=== PATIENT | female | born 1955 | race Caucasian/White ===

== ENCOUNTER 2018-04-01 07:44 | Day surgery (SDC) | payer BC ==
[2018-04-01] MEDS: LR 1,000 ML IV (08:00)
[2018-04-01] MEDS ORDERED: PROPOFOL 200 MG/20 ML VIAL As Ordered ×3 (08:55→12:13)
[2018-04-01] MEDS ORDERED: LIDOCAINE 2% INJ 100 MG/5 ML SDV (FOR ANES.) As Ordered (08:55)
[2018-04-01] MEDS ORDERED: fentaNYL 100 MCG/2 ML INJECTION (J3010) As Ordered (09:22)
[2018-04-01] MEDS ORDERED: MIDAZOLAM INJ 2 MG/2 ML VIAL (J2250) As Ordered (09:22)
[2018-04-01] MEDS: LIDOCAINE 2% MDV 20 ML VIAL As Ordered (10:28)
[2018-04-01] MEDS: BUPIVACAINE HCL 0.5% 10 ML VIAL As Ordered (10:28)
[2018-04-01] MEDS: BACITRACIN PWD 50,000 UNITS VIAL As Ordered (11:38)
[2018-04-01] MEDS: NEOSPORIN GU IRRIG 20 ML VIAL As Ordered (11:39)
[2018-04-01] MEDS: dexameTHASONE 4 MG/ML 1ML VIAL (J1100) As Ordered (11:56)
[2018-04-01] MEDS: ROPIvacaine 0.5% 30 ML INJECTION (J2795 PER 1MG) As Ordered (11:57)
== END 2018-04-01 14:40 | disposition home or self-care (01) ==
LOC: M SDC 07:44
DX: T84.84XA Pain due to internal orthopedic prosthetic devices, implants and grafts, initial encounter (principal); M20.22 Hallux rigidus, left foot; M77.42 Metatarsalgia, left foot; I10 Essential (primary) hypertension; E03.9 Hypothyroidism, unspecified; K21.9 Gastro-esophageal reflux disease without esophagitis; F41.9 Anxiety disorder, unspecified; F32.9 Major depressive disorder, single episode, unspecified; Z87.891 Personal history of nicotine dependence; Z79.899 Other long term (current) drug therapy; Z86.718 Personal history of other venous thrombosis and embolism
CPT/HCPCS: 20680

== ENCOUNTER → 2018-08-25 | Outpatient (CLI) | payer BC ==
[~2018-08-25] MED LIST: ACET-683 PO; ANAS1TAB2 PO; ASPI81CH33 PO; ATOR1TAB21 PO; BIOT1CAP2 PO; CELE40TA PO; CLON-412 PO; COLA100C5 PO; CRAN400C PO; FISH1000 PO; LOSA25TA14 PO; MULTCAP PO; OMEP20CA3 PO; SYNT150T PO; TRAZ-160 PO; VITA-122 PO; VITA400C67 PO
--- NOTE | 2018-08-30 13:33 | RADONC ---
RADIATION ONCOLOGY CONSULTATION NOTE DATE: 08/25/2018 CHART NUMBER: [id number] DIAGNOSIS: Right breast cancer. STAGE: I A, pT1a, N1, mi (sn), M0, ER positive, [place] positive, HER2/domonique negative, grade 2. ECOG PERFORMANCE STATUS: 0 CONSULTATION NOTE: Ms. Chapa is a very pleasant, 63-year-old white female with the diagnosis of what appears to be a stage I A, pT1a, N1, mi (sn), M0 moderately differentiated infiltrating ductal carcinoma of the right breast who is presenting to us today status post lumpectomy and sentinel lymph node biopsy for consideration of postoperative radiation therapy for conservative breast management. HISTORY OF PRESENT ILLNESS: The patient was in her usual state of health until recent mammography was done on 06/28/2018, which showed a suspicious area at the 3:30 position in the right breast. There was also another suspicious area in the 6:30 position of the right breast. On 06/28/2018, the patient underwent a core biopsy of the area in the 6:30 position, which turned out to be chronic inflammation and scattered foreign body giant cells. Unfortunately, the lesion in the 3:30 position under core biopsy revealed a moderately differentiated invasive ductal carcinoma, which measured 0.6 cm in greatest diameter. No lymph vascular invasion was identified. The tumor was estrogen receptor positive, progesterone receptor positive and HER2/domonique negative. Subsequent re-excision and sentinel lymph node biopsy was done on 07/29/2018 and the primary site showed some residual well-differentiated invasive ductal carcinoma, which was 1 mm from the inferior margin. The remaining margins were all negative greater than 2 mm. Of note, one sentinel lymph node was sampled and found to be positive for micrometastasis. The size of the metastatic deposits in that lymph node was less than 2 mm. Extranodal extension was not identified. Oncotype testing was done and the recurrence score was 9 for a risk at 9 years of 12% with FORRESTER alone. There was thought to be no apparent benefit for chemotherapy. The patient is therefore being referred to us for consideration of postoperative radiation therapy for conservative breast management. PAST MEDICAL HISTORY: The patient's past medical history is positive for hypertension and hypothyroidism. She had a DVT several years ago and has a history of arthritis. The patient has had a cholecystectomy as well as hernia repairs in the past. ALLERGIES: The patient is allergic to ADHESIVE TAPE. SOCIAL HISTORY: The patient had smoked one pack of cigarettes per day for approximately 10-12 years. She quit 25 years ago. She does not abuse alcohol. FAMILY HISTORY: The patient's family history is positive for a maternal grandmother with breast cancer, a sister with breast cancer, another sister with breast cancer, and a niece with breast cancer. REVIEW OF SYSTEMS: The patient's review of systems is positive for some anxiety, but is otherwise noncontributory. Denies nausea, vomiting, fevers, chills, night sweats, diplopia, headaches, anxiety or depression, anorexia, weight loss, visual disturbances, chest pain, urinary or bowel difficulties, bone pain, or neurological problems. PHYSICAL EXAMINATION: The patient is a well-developed, well-nourished, 63-year-old white female in no acute distress. HEENT exam is normocephalic, atraumatic. Extraocular movements are intact. There is no palpable cervical, supraclavicular, infraclavicular, axillary, or inguinal lymphadenopathy present. Lungs are clear to auscultation and percussion. Heart has a regular rate and rhythm. Abdomen is benign with no hepatosplenomegaly, masses, or tenderness. Breast examination reveals no masses or discharge bilaterally. Skeletal examination reveals no tenderness to pressure or percussion of the bony skeleton. Extremities reveal no clubbing, cyanosis, or edema. Neurologic exam is grossly intact, as is the remainder of the physical examination. ASSESSMENT: Clearly the patient is a candidate for external beam radiation therapy and I have so informed her. I have discussed with the patient in detail the potential benefits as well as possible acute and chronic sequelae of external beam radiation therapy. We discussed the logistics of treatment planning, simulation and subsequent fractionated daily radiation treatments. I have scheduled the patient for the next available simulation slot and radiation treatments will follow subsequently. Thank you for allowing us to participate in the care of this very pleasant woman. If I could be of any further assistance or provide you with any information, please free to contact me anytime. As always, warm regards. cc: MD Keren Day MD MTDD
== END ==
LOC: M ONCR 12:35
PROVIDERS: ATTEND Radiology Radiation Oncology
DX: C50.911 Malignant neoplasm of unspecified site of right female breast (principal)

== ENCOUNTER → 2018-09-30 | Outpatient (RCR) | payer BC ==
[2018-09-07 15:16] LABS: HEMATOCRIT 37.9 % (36.0-47.0); HEMOGLOBIN 12.6 g/dl (12.0-15.5); LYMPH % 40.6 % (24.0-44.0); MEAN CORPUSCULAR HEMOGLOBIN 31.8 pg (27.0-33.0); MEAN CORPUSCULAR HGB CONC 33.2 g/dl (32.0-36.5); MEAN CORPUSCULAR VOLUME 95.7 fl (80.0-96.0); NEUTROPHILS # 2.4 10^3/uL (1.8-7.7); NEUTROPHILS % 48.4 % (36.0-66.0); RED BLOOD COUNT 3.96 10^6/uL (4.00-5.40); WHITE BLOOD COUNT 4.9 10^3/uL (4.0-10.0)
--- NOTE | 2018-09-08 10:28 | RADONC ---
RADIATION ONCOLOGY SIMULATION NOTE DATE: 09/07/2018 CHART NUMBER: [id number] SIMULATION NOTE: Ms. Chapa was taken to the CT scan for CT simulation of her right breast field. CT was accomplished without difficulty or discomfort. Radiation treatment planning is underway and radiation treatments will begin subsequently. An immobilization device was created and will be used throughout the course of treatment. It was created without difficulty or discomfort. I was physically present throughout the course of CT simulation.
--- NOTE | 2018-09-19 23:14 | RADONC ---
RADIATION ONCOLOGY PROGRESS NOTE DATE: 09/19/2018 CHART NUMBER: [id number] Ms. Chapa is presently at a dose of 900 cGy to her right breast and is tolerating treatments quite well at this point with no complaints related to her radiation therapy. She has no breast or bone pain. The patient's review of systems is noncontributory. She denies nausea, vomiting, fevers, chills, night sweats, diplopia, headaches, anxiety or depression, anorexia, weight loss, visual disturbances, chest pain, urinary or bowel difficulties, bone pain, or neurological problems. PHYSICAL EXAMINATION: The patient's skin is in good condition with no evidence of moist or dry desquamation. The remainder of her physical exam remains unchanged. Ms. Chapa is tolerating treatments quite well and radiation will continue as scheduled.
--- NOTE | 2018-09-28 09:08 | RADONC ---
RADIATION ONCOLOGY PROGRESS NOTE DATE: 09/27/2018 CHART NUMBER: [id number] PROGRESS NOTE: Ms. Chapa is presently at a dose of 1620 cGy to her right breast and supraclavicular region and is tolerating treatments quite well at this point with no complaints related to her radiation therapy. She is having no breast or bone pain. REVIEW OF SYSTEMS: The patient's review of systems is noncontributory. Denies nausea, vomiting, fevers, chills, night sweats, diplopia, headaches, anxiety or depression, anorexia, weight loss, visual disturbances, chest pain, urinary or bowel difficulties, bone pain, or neurological problems. PHYSICAL EXAMINATION: The patient's skin is in good condition with no evidence of moist or dry desquamation. The remainder of her physical exam remains unchanged. Ms. Chapa is tolerating treatments quite well and radiation will continue as scheduled.
[~2018-09-30] MED LIST changes: +BACL10TA2 PO; +SILV40CR EXT; -TRAZ-160 PO; +TRAZ-252 PO
== END ==
LOC: M ONCR 09-07 14:04
PROVIDERS: ATTEND Radiology Radiation Oncology
DX: C50.811 Malignant neoplasm of overlapping sites of right female breast (principal)

== ENCOUNTER 2018-10-14 06:41 | Day surgery (SDC) | payer BC ==
[~2018-10-14] VITALS: Ht 160 cm; Wt 81.2 kg
[~2018-10-14 06:41] MED LIST changes: +LR 1,000 ML IV ONE
[2018-10-14] MEDS ORDERED: NEOSPORIN GU IRRIG 20 ML VIAL As Ordered ONE (07:30)
[2018-10-14] MEDS ORDERED: LIDOCAINE 2% MDV 20 ML VIAL As Ordered ONE (07:30)
[2018-10-14] MEDS ORDERED: BACITRACIN PWD 50,000 UNITS VIAL As Ordered ONE (07:30)
[2018-10-14] MEDS ORDERED: BUPIVACAINE HCL 0.5% 30 ML VIAL As Ordered ONE ×2 (07:30→08:32)
[2018-10-14] MEDS ORDERED: dexameTHASONE 4 MG/ML 1ML VIAL (J1100) As Ordered ONE (07:30)
[2018-10-14] MEDS ORDERED: KETAMINE HCL 200 MG/20 ML VIAL As Ordered ONE (09:04)
[2018-10-14] MEDS ORDERED: LIDOCAINE 2% INJ 100 MG/5 ML SDV (FOR ANES.) As Ordered ONE (09:04)
[2018-10-14] MEDS ORDERED: ONDANSETRON 4MG/2ML VIAL (J2405) As Ordered ONE (09:04)
[2018-10-14] MEDS ORDERED: PROPOFOL 200 MG/20 ML VIAL As Ordered ONE (09:04)
[2018-10-14] MEDS ORDERED: MIDAZOLAM INJ 2 MG/2 ML VIAL (J2250) As Ordered ONE (09:04)
[2018-10-14] MEDS ORDERED: fentaNYL 100 MCG/2 ML INJECTION (J3010) As Ordered ONE (09:04)
[2018-10-14] MEDS ORDERED: NORCO, ANEXSIA 5/325MG TABLET (HYDROcodone/ACETAMINOPHEN) As Ordered ONE (09:53)
[2018-10-14] MEDS ORDERED: ONDANSETRON 4MG/2ML VIAL (J2405) IV PRN (10:15)
[2018-10-14] MEDS ORDERED: NORCO, ANEXSIA 5/325MG TABLET (HYDROcodone/ACETAMINOPHEN) PO PRN (10:15)
--- NOTE | 2018-10-14 10:31 | RO ---
DATE OF PROCEDURE: 10/14/2018 PREOPERATIVE DIAGNOSIS: Painful hardware first metatarsal phalangeal joint left foot, screws and plates. POSTOPERATIVE DIAGNOSIS: Painful hardware first metatarsal phalangeal joint left foot, screws and plates. PROCEDURE: Removal of plate and screws first metatarsal phalangeal joint left foot. SURGEON: Jose Martin Patel DPM STEMHOLE BORER: None. ANESTHESIA: Local, monitored anesthesia care (MAC). IRRIGATION: Dilute bacitracin, neomycin and polymyxin B solution. HEMOSTASIS: Ankle pneumatic tourniquet at 250 mmHg for 24 minutes on the left ankle. DESCRIPTION OF PROCEDURE: On 10/14/2018, this 63-year-old white female was taken from her hospital room to the operating room and placed on the operating room table in a supine position. Following the induction of IV sedation, local and regional anesthesia, the left lower extremity was prepped and draped in the usual aseptic manner. The ankle pneumatic tourniquet was rapidly inflated to 250 mmHg, sterile draping was completed and the following procedure was performed. REMOVAL OF HARDWARE FIRST METATARSAL PHALANGEAL JOINT LEFT FOOT: Attention was directed to the patient's left foot where a linear incision was placed over a previous linear cicatrix. Dissection was carried down to the level of a plate over the dorsal aspect of the first metatarsal phalangeal joint. The extensor hallucis longus tendon was retracted in a lateral direction. Utilizing a [place] elevator, the periosteum was removed from the aspect exposing the plate and the screws and plate were removed from the first metatarsal phalangeal joint. A stab incision was then placed on the medial surface of the foot and dissection was carried down to the level of the location where there has been a proximal screw through the proximal phalanx. K-wire was then placed down the center shaft of this cannulated screw to ease removal of the screw. A screwdriver was then placed onto the screw and the screw was removed. The wound was flushed with copious amounts of dilute bacitracin, Neomycin and polymyxin B solution. Attention was then directed towards closure where the capsular structures were coapted and maintained utilizing #3-0 Monocryl in a simple interrupted type fashion, the subcutaneous tissue coapted and maintained utilizing #4-0 Monocryl in a simple interrupted type fashion, and skin incision coapted and maintained utilizing #4-0 Prolene in a simple interrupted and horizontal mattress type fashion. Following the completion of the surgical procedure, 4 mg of dexamethasone sodium phosphate was instilled around the surgical site. Attention was directed towards bandaging where a sterile compressive bandage was applied consisting of Adaptic, 4x4s, 4x4 splints, Ramone, Kerlix and Coban. The ankle pneumatic tourniquet was rapidly deflated and instantaneous capillary filling time was noted in digits 1-5 of the patients left foot. The patient having apparently tolerated the surgical procedure well was taken from the operating room (OR) to the recovery room for further monitoring by the anesthesia department.
[2018-10-14 10:40] VITALS: BP 136/67
== END 2018-10-14 10:45 | disposition home or self-care (01) ==
LOC: M SDC 06:41
PROVIDERS: ATTEND Podiatrist
DX: T84.84XA Pain due to internal orthopedic prosthetic devices, implants and grafts, initial encounter (principal); I10 Essential (primary) hypertension; E78.00 Pure hypercholesterolemia, unspecified; E03.9 Hypothyroidism, unspecified; K44.9 Diaphragmatic hernia without obstruction or gangrene; K59.00 Constipation, unspecified; K21.9 Gastro-esophageal reflux disease without esophagitis; M20.22 Hallux rigidus, left foot; R20.2 Paresthesia of skin; J30.89 Other allergic rhinitis; M12.9 Arthropathy, unspecified; F41.9 Anxiety disorder, unspecified; F32.9 Major depressive disorder, single episode, unspecified; Z88.5 Allergy status to narcotic agent; Z88.8 Allergy status to other drugs, medicaments and biological substances; Z91.048 Other nonmedicinal substance allergy status; Z79.899 Other long term (current) drug therapy; Z79.82 Long term (current) use of aspirin; Z78.0 Asymptomatic menopausal state; Z92.3 Personal history of irradiation; Z87.891 Personal history of nicotine dependence; X58.XXXA Exposure to other specified factors, initial encounter; Y93.9 Activity, unspecified; Y92.9 Unspecified place or not applicable; Y99.8 Other external cause status
CPT/HCPCS: 20680; J0690; J1100; J2250; J2405; J3010

== ENCOUNTER 2018-10-28 15:30 | Outpatient (RCR) | payer BC ==
--- NOTE | 2018-10-04 09:12 | RADONC ---
RADIATION ONCOLOGY PROGRESS NOTE DATE: 10/03/2018 CHART #: [id number] PROGRESS NOTE: Mrs. Chapa with a diagnosis of breast cancer on the right is currently receiving local regional radiotherapy to her right breast and supraclavicular area. She is tolerating her therapy reasonably well and expresses no complaints. REVIEW OF SYSTEMS: She specifically denies any nausea, vomiting, coughing, sputum production or hemoptysis. Her energy level is satisfactory and she is able to maintain most day-to-day activities without any alteration of her lifestyle. Skin irritation at this point is not an issue for her. She has no other symptoms related to her disease or to her treatments, specifically denying any night sweats, diplopia, headaches, anxiety, depression, anorexia, weight loss, visual disturbances, chest pain, urinary or bowel difficulties, bone pain or neurologic issues. EXAMINATION FINDINGS: The skin within the irradiated volume looks essentially negative with no evidence of erythema and certainly no focal desquamation. IMPRESSION: Tolerating therapy well. PLAN: Treatments to continue. Thank you well know as Dr. Eli chan
--- NOTE | 2018-10-11 07:25 | RADONC ---
RADIATION ONCOLOGY PROGRESS NOTE DATE: 10/10/2018 CHART NUMBER: [id number] Ms. Chapa is presently at a dose of 3240 cGy to her right breast and overall is tolerating her treatments fairly well. She is having some skin discomfort however, mostly in the inframammary and axillary regions. REVIEW OF SYSTEMS: The patient's review of systems is positive for skin discomfort but is otherwise noncontributory. Denies nausea, vomiting, fevers, chills, night sweats, diplopia, headaches, anxiety or depression, anorexia, weight loss, visual disturbances, chest pain, urinary or bowel difficulties, bone pain, or neurological problems. PHYSICAL EXAMINATION: The patient has some brisk erythema present in the axillary and inframammary regions. The remainder of the skin is in good condition. There is no evidence of moist or dry desquamation. I have sent in a prescription for Silvadene to be applied topically. We will continue to follow her closely, and we discussed a short treatment break for this patient as well. She is very fair skinned and reacts very easily to sunburns.
--- NOTE | 2018-10-18 09:53 | RADONC ---
RADIATION ONCOLOGY PROGRESS NOTE: DATE: 10/17/2018 CHART NUMBER: [id number] Ms. Chapa is presently at a dose of 3420 cGy to her right breast and was last treated on 10/11/2018. She has been on break and is scheduled to resume radiation tomorrow. She was placed on break secondary to a brisk skin reaction.
--- NOTE | 2018-10-26 06:37 | RADONC ---
RADIATION ONCOLOGY PROGRESS NOTE DATE: 10/25/2018 CHART NUMBER: [id number] Mrs. Chapa, with a diagnosis of right breast cancer, is currently receiving local regional adjuvant radiotherapy and she has achieved a dose thus far of 4140 centigray of an anticipated 4860 centigray. This will be followed by an additional 1200 centigray boost to the lumpectomy site via an energetic electron beam. She seems to be tolerating her radiotherapy reasonably well with no specific complaints. REVIEW OF SYSTEMS: She denies any nausea, vomiting, coughing, sputum production or hemoptysis. Her energy level is perhaps somewhat diminished but she is still able to maintain most day-to-day activities without any alteration of her lifestyle. Skin irritation is minimal to moderate. EXAMINATION FINDINGS: The skin within the irradiated volume shows an erythematous blush without focal desquamation. No masses are palpable in either breast. Lungs are clear. The remainder of the physical examination is unchanged. IMPRESSION: Tolerating therapy well. PLAN: Treatments to continue.
[~2018-10-28 15:30] MED LIST changes: -LR 1,000 ML IV ONE; -OMEP20CA3 PO; +OMEP20CA4 PO
== END 2018-10-30 ==
LOC: M ONCR 15:30
PROVIDERS: ATTEND Radiology Radiation Oncology
DX: C50.811 Malignant neoplasm of overlapping sites of right female breast (principal)

== ENCOUNTER 2018-11-09 15:32 | Outpatient (RCR) | payer BC ==
--- NOTE | 2018-11-01 07:17 | RADONC ---
RADIATION ONCOLOGY PROGRESS NOTE: DATE: 10/31/2018 CHART NUMBER: [id number] Mrs. Chapa with a diagnosis of right breast carcinoma is currently receiving local regional radiotherapy and she has achieved a dose thus far of 4860 cGy of an anticipated 4860 cGy in addition to 200 cGy of an anticipated 1200 cGy to the lumpectomy scar site. She is tolerating her radiotherapy reasonably well. She started using Silvadene cream which has helped her with skin healing considerably. REVIEW OF SYSTEMS: Otherwise, the patient denies any nausea, vomiting, coughing, sputum production, hemoptysis, odynophagia, dysphagia or breast pain. The remainder of the review of systems is unchanged. EXAMINATION: The skin within the irradiated volume shows almost complete healing of the skin with residual erythema but no significant focal areas of desquamation. There is no palpable peripheral lymphadenopathy. Lungs are clear. The remainder of the physical examination is unchanged. IMPRESSION: Tolerating therapy well. PLAN: Treatments to continue. MTDD
--- NOTE | 2018-11-08 08:36 | RADONC ---
RADIATION ONCOLOGY PROGRESS NOTE DATE OF SERVICE: 11/07/2018 CHART NUMBER: [id number]. PROGRESS NOTE: Ms. Chapa is presently at a dose of 5660 cGy to her right breast primary site and is tolerating treatments quite well at this point with no complaints related to her radiation therapy. She has no significant breast or bone pain. REVIEW OF SYSTEMS: The patient's review of systems is noncontributory. She denies nausea, vomiting, fevers, chills, night sweats, diplopia, headaches, anxiety or depression, anorexia, weight loss, visual disturbances, chest pain, urinary or bowel difficulties, bone pain, or neurological problems. PHYSICAL EXAMINATION: The patient's skin is in good condition with no evidence of moist or dry desquamation. There is erythema and tanning present. The remainder of her physical exam remains unchanged. Ms. Chapa is tolerating treatments quite well, and radiation will continue as scheduled.
[~2018-11-09 15:32] MED LIST changes: +OMEP1CAP73 PO; -OMEP20CA4 PO
--- NOTE | 2018-11-11 09:24 | RADONC ---
RADIATION ONCOLOGY TREATMENT SUMMARY DATE: November 10, 2018 CHART NUMBER: [id number] DIAGNOSIS: Right breast cancer. STAGE: I A, pT1a, N1, mi (sn), M0, ER positive, [place] positive, HER2/domonique negative, grade 2. ECOG PERFORMANCE STATUS: 0 TREATMENT SUMMARY: Ms. Chapa is a very pleasant, 63-year-old white female with the diagnosis what appears to be a stage I A, pT1a, N1, mi (sn), M0 moderately differentiated infiltrating ductal carcinoma of the right breast who presented to us status post lumpectomy and sentinel lymph node biopsy for consideration of postoperative radiation therapy for conservative breast management. We treated the patient to her right breast for a total dose of 4860 cGy delivered in 27 fractions of 180 cGy each over 45 elapsed days from 09/13/2018 through 10/28/2018. The patient's right breast was treated on a linear accelerator utilizing a 3-D conformal technique with medial and lateral tangential crane and a combination of 6X and 10X photons. Following completion of 4867 cGy in the entire right breast, the primary site was boosted for an additional 1200 cGy delivered in 6 fractions of 200 cGy each from 10/31/2018 through 11/09/2018. The primary site boost was treated on a linear accelerator utilizing a 12 MeV electron beam prescribed to the 90% isodose line via non phos technique. This brought the primary site to a total dose of 6060 cGy delivered in 33 fractions over 57 elapsed days from 09/13/2018 through 11/09/2018. We also treated the patient's lymphatic drainage sites for a dose of 4680 cGy delivered in 26 fractions of 180 cGy each over 45 elapsed days from 09/13/2018 through 10/28/2018. The patient's lymphatic drainage sites were treated on the linear accelerator utilizing a 3-D conformal technique with an anterior oblique field and a PA field. A 15 MV and 6 MV photon were used. Ms. Chapa tolerated her treatments quite well and was able complete therapy as prescribed without interruption. I have scheduled the patient to see me again in 1 month for further followup. She will also continue to be followed by her other physicians as well. Thank you for allowing us to participate in the care of this very pleasant woman. If I could be of any further assistance or provide you with any information, please feel free to contact me at anytime. As always, warm regards. cc: MD Keren Day MD MTDD
== END 2018-11-30 ==
LOC: M ONCR 15:32
PROVIDERS: ATTEND Radiology Radiation Oncology
DX: C50.811 Malignant neoplasm of overlapping sites of right female breast (principal)

== ENCOUNTER → 2018-12-21 | Outpatient (CLI) | payer BC ==
[~2018-12-21] MED LIST changes: -OMEP1CAP73 PO; +OMEP20CA4 PO
--- NOTE | 2018-12-23 16:20 | RADONC ---
RADIATION ONCOLOGY FOLLOWUP NOTE DATE: 12/21/2018 CHART NUMBER: [id number] DIAGNOSIS: Right breast cancer. STAGE: Stage I A, pT1a,N1, mi (sn), M0, ER positive, [place] positive, HER2/domonique negative, grade 2. ECOG PERFORMANCE STATUS: 0 FOLLOWUP NOTE: Ms. Chapa is a very pleasant 63-year-old white female with the diagnosis of a stage I A, pT1a,N1, mi (sn), M0 moderately differentiated infiltrating ductal carcinoma of the right breast who is presenting to us today for routine followup visit 1 month post completion of external beam radiation therapy. The patient presents today reporting that she is doing quite well with no complaints at this time related to her radiation therapy or disease. She had no breast or bone pain. REVIEW OF SYSTEMS: The patient's review of systems is noncontributory. Denies nausea, vomiting, fevers, chills, night sweats, diplopia, headaches, anxiety or depression, anorexia, weight loss, visual disturbances, chest pain, urinary or bowel difficulties, bone pain, or neurological problems. PHYSICAL EXAMINATION: The patient is a well-developed, well-nourished, 63-year-old white female, in no acute distress. HEENT exam is normocephalic, atraumatic. Extraocular movements are intact. There is no palpable cervical, supraclavicular, infraclavicular, axillary, or inguinal lymphadenopathy present. Lungs are clear to auscultation and percussion. Heart has a regular rate and rhythm. Abdomen is benign with no hepatosplenomegaly, masses, or tenderness. Breast examination reveals no masses or discharge bilaterally. Skeletal examination reveals no tenderness to pressure or percussion of the bony skeleton. Extremities reveal no clubbing, cyanosis, or edema. Neurologic exam is grossly intact, as is the remainder of the physical examination. ASSESSMENT: The patient is clinically DIAZ at this time will be seen by us again in 6 months for further followup. She will also continue be followed by her other physicians as well. cc: MD Keren Day MD
== END ==
LOC: M ONCR 15:00
PROVIDERS: ATTEND Radiology Radiation Oncology
DX: C50.811 Malignant neoplasm of overlapping sites of right female breast (principal)

== ENCOUNTER → 2019-05-31 | Outpatient (CLI) | payer BC ==
[~2019-05-31] MED LIST changes: +OMEP1CAP73 PO; -OMEP20CA4 PO
--- NOTE | 2019-06-01 11:36 | RADONC ---
RADIATION ONCOLOGY DATE OF SERVICE: 05/31/2019 CHART NUMBER: [id number] DIAGNOSIS: Right breast cancer. STAGE: I A, little pT1a, N1 mi (sn) M0, ER positive, [place] positive, HER2/domonique negative, grade 2. ECOG PERFORMANCE STATUS: 0 Ms. Chapa is a very pleasant 63-year-old white female with the diagnosis of a stage I A, little PT1a N1 mi (sn) M0 moderately differentiated infiltrating ductal carcinoma of the right breast who is presenting to us today for routine followup visit 6 months post completion of external beam radiation therapy. The patient presents today reporting that she is doing quite well with no complaints at this time related to her radiation therapy. She has no breast or bone pain. REVIEW OF SYSTEMS: The patient's review of systems is noncontributory. She denies nausea, vomiting, fevers, chills, night sweats, diplopia, headaches, anxiety or depression, anorexia, weight loss, visual disturbances, chest pain, urinary or bowel difficulties, bone pain, or neurological problems. PHYSICAL EXAMINATION: The patient is a well-developed, well-nourished female in no acute distress. HEENT exam is normocephalic, atraumatic. Extraocular movements are intact. There is no palpable cervical, supraclavicular, infraclavicular, axillary, or inguinal lymphadenopathy present. Lungs are clear to auscultation and percussion. Heart has a regular rate and rhythm. Abdomen is benign with no hepatosplenomegaly, masses, or tenderness. Breast examination reveals no masses or discharge bilaterally. Skeletal examination reveals no tenderness to pressure or percussion of the bony skeleton. Extremities reveal no clubbing, cyanosis, or edema. Neurologic exam is grossly intact, as is the remainder of the physical examination. ASSESSMENT: The patient is clinically DIAZ at this time. She is being followed closely by her surgical oncologist, Dr. Cori Bernal as well as her other physicians. In light of this, I am discharging her from my followup except on a p.r.n. basis. cc: MD Cori Xavier MD
== END ==
LOC: M ONCR 14:30
PROVIDERS: ATTEND Radiology Radiation Oncology
DX: Z85.3 Personal history of malignant neoplasm of breast (principal); Z92.3 Personal history of irradiation

== ENCOUNTER → 2025-02-21 | Outpatient (REF) | payer MEDICARE ==
[~2025-02-21] MED LIST changes: -CRAN400C PO; +CRANBERRY400 MG PO; +GABA-1171 PO; +LEVO112T2; +LEVO125T4 PO; +LOSA25TA13 PO; -LOSA25TA14 PO; +MULT-90 PO; +OMEP40CA5 PO; +PANT40TA29; +VITA100093 PO
[2025-02-21 15:45] LABS: APPEARANCE, URINE HAZY (CLEAR); BACTERIA, URINE AUTO NEGATIVE (NEGATIVE); BILIRUBIN, URINE AUTO NEGATIVE (NEGATIVE); BLOOD, URINE BLOOD NEGATIVE (NEGATIVE); CALCIUM OXALATE CRYSTALS LARGE; GLUCOSE, URINE (UA) AUTO NEGATIVE (NEGATIVE); KETONE, URINE AUTO NEGATIVE (NEGATIVE); LEUKOCYTE ESTERASE, URINE AUTO NEGATIVE (NEGATIVE); MUCUS, URINE SMALL (NEGATIVE); NITRITE, URINE AUTO NEGATIVE (NEGATIVE); PROTEIN, URINE AUTO NEGATIVE (NEGATIVE); RBC, URINE AUTO 12 /HPF (0-3); SPECIFIC GRAVITY URINE AUTO 1.020 (1.002-1.035); SQUAMOUS EPITHELIAL CELL UR AU 0 /HPF (0-6); UROBILINOGEN, URINE AUTO 0.2 mg/dL (0.0-2.0); WBC, URINE AUTO 5 /HPF (0-3)
== END ==
LOC: M LABSMT 11:41
PROVIDERS: ATTEND Urology
DX: R39.9 Unspecified symptoms and signs involving the genitourinary system (principal)